=== PATIENT | male | born 1945 | race Caucasian/White ===

== ENCOUNTER 2019-12-21 | Emergency (ER) | payer MEDICARE, BC ==
[2019-12-21] MEDS ORDERED: LASIX 40 MG TAB40 MG PO (22:50)
[2019-12-21] MEDS ORDERED: ATORVASTATIN CA40 MG PO (22:50)
[2019-12-21] MEDS ORDERED: TOPROL XL25 M1 PO (22:50)
[2019-12-21] MEDS ORDERED: METFORMIN500 MG PO (22:51)
[2019-12-21] MEDS ORDERED: NOVOLIN 70/30 F1 INJ SC ×2 (22:53→22:57)
[2019-12-21] MEDS ORDERED: COZAAR25 MG PO (22:57)
[2019-12-21] MEDS ORDERED: ASPIRIN 81 LOW81 MG PO (22:58)
[2019-12-21] MEDS ORDERED: PEPCID AC10 MG PO (22:58)
[2019-12-21] MEDS ORDERED: VITAMIN D32000 UNIT PO (22:59)
[2019-12-21] MEDS ORDERED: CENTRUM PO (23:00)
== END 2019-12-21 23:23 | disposition home or self-care (01) ==
DX: I83.892 Varicose veins of left lower extremity with other complications (principal); S80.812A Abrasion, left lower leg, initial encounter; E11.9 Type 2 diabetes mellitus without complications; I10 Essential (primary) hypertension; I25.10 Atherosclerotic heart disease of native coronary artery without angina pectoris; Z95.1 Presence of aortocoronary bypass graft; Z95.0 Presence of cardiac pacemaker; Z79.4 Long term (current) use of insulin; X58.XXXA Exposure to other specified factors, initial encounter

== ENCOUNTER 2021-12-18 17:09 | Emergency (ER) | payer MEDICARE, BC ==
[~2021-12-18] VITALS: Ht 172.7 cm; Wt 117.6 kg
[~2021-12-18 17:09] MED LIST: ASPIRIN 81 LOW81 MG PO; ATORVASTATIN CA40 MG PO; CENTRUM PO; COZAAR25 MG PO; LASIX 40 MG TAB40 MG PO; METFORMIN500 MG PO; NOVOLIN 70/30 F1 INJ SC; PEPCID AC10 MG PO; TOPROL XL25 M1 PO; VITAMIN D32000 UNIT PO
[2021-12-18 17:46] VITALS: BP 143/87
[2021-12-18 18:00] VITALS: BP 142/85
[2021-12-18 19:32] VITALS: BP 142/85
== END 2021-12-18 19:32 | disposition home or self-care (01) ==
LOC: ED 17:09
PROC: 0HQEXZZ Repair Left Lower Arm Skin, External Approach (ICD-10-PCS; principal; 2021-12-18)
DX: S51.812A Laceration without foreign body of left forearm, initial encounter (principal); E11.9 Type 2 diabetes mellitus without complications; I10 Essential (primary) hypertension; I25.10 Atherosclerotic heart disease of native coronary artery without angina pectoris; W31.2XXA Contact with powered woodworking and forming machines, initial encounter; Z95.1 Presence of aortocoronary bypass graft; Z95.0 Presence of cardiac pacemaker; Z79.4 Long term (current) use of insulin; Z79.84 Long term (current) use of oral hypoglycemic drugs; Z79.01 Long term (current) use of anticoagulants

== ENCOUNTER 2022-12-20 22:55 | Observation (INO) | payer MEDICARE, BC ==
[~2022-12-20] VITALS: Ht 172.7 cm; Wt 102.0 kg
[2022-12-20 23:04] VITALS: BP 110/53
[2022-12-20 23:15] VITALS: BP 119/51
[2022-12-20 23:42] LABS: EOS% 0.4 % (0-8); HEMATOCRIT 34.8 % (39.0-50.0); HEMOGLOBIN 10.9 g/dl (14.0-18.0); IMMATURE GRANULOCYTES 0.2 % (0.0-5.0); LYMPH% 6.9 % (15-41); MEAN CELL VOLUME 85.1 fL CALC (80.0-100.0); MEAN CORPUSCULAR HGB 26.7 pG CALC (26.0-32.0); MEAN CORPUSCULAR HGB CONC 31.3 g/dL CAL (32.0-36.0); MONO% 7.6 % (2-13); NEUT# 8.06 thou/uL (1.82-7.42); NEUT% 84.9 % (42-76); RED BLOOD COUNT 4.09 mill/uL (4.70-6.10); RED CELL DISTRI WIDTH 14.5 % (11.5-15.5)
[2022-12-20 23:57] LABS: ALKALINE PHOSPHATASE 105 u/l (38-126); ANION GAP 15 (6-22 (CALC)); BILIRUBIN, TOTAL 1.5 mg/dL (0.2-1.3); BUN 25 mg/dL (8-23); BUN/CREATININE RATIO 19 (12-20 (CALC)); CARBON DIOXIDE 25 mmol/l (22-30); CHLORIDE 99 mmol/l (95-108); CREATININE 1.3 mg/dL (0.7-1.3); GFR FOR AFR.AMER. > 60 ML/MIN (>=60 (CALC)); GFR OTHER RACES 54 ML/MIN (>=60 (CALC)); MAGNESIUM 1.8 mg/dL (1.6-2.3); POTASSIUM 4.9 mmol/l (3.5-5.1); SGOT/AST 35 u/l (19-48); SODIUM 134 mmol/l (137-146); TOTAL PROTEIN 7.5 g/dL (6.3-8.2)
[2022-12-21] VITALS (50 sets, daily range): BP systolic 76–121; BP diastolic 37–70
[2022-12-21 00:11] LABS: C-REACTIVE PROTEIN 18.5 mg/dL (0-0.9)
[2022-12-21 01:00] LABS: URINE BILIRUBIN - DIPSTICK NEGATIVE (NEGATIVE); URINE BLOOD DIPSTICK SMALL (NEGATIVE); URINE COLOR YELLOW; URINE GLUCOSE - DIPSTICK NEGATIVE (NEGATIVE); URINE KETONE TRACE mg/dL (NEGATIVE); URINE LEUK ESTERASE NEGATIVE (NEGATIVE); URINE NITRITE - DIPSTICK NEGATIVE (Negative); URINE PH 5.5 (4.5-8.0); URINE PROTEIN - DIPSTICK 30 mg/dL (NEG-TRACE)
[2022-12-21] MEDS ORDERED: ENTRESTO 49-511 TAB PO (02:22)
[2022-12-22 03:23] VITALS: BP 105/53
[2022-12-22 05:38] LABS: BASO% 0.1 % (0-3); EOS% 1.5 % (0-8); HEMATOCRIT 31.2 % (39.0-50.0); HEMOGLOBIN 9.8 g/dl (14.0-18.0); IMMATURE GRANULOCYTES 0.9 % (0.0-5.0); MEAN CELL VOLUME 85.2 fL CALC (80.0-100.0); MEAN CORPUSCULAR HGB 26.8 pG CALC (26.0-32.0); MEAN CORPUSCULAR HGB CONC 31.4 g/dL CAL (32.0-36.0); MONO% 5.8 % (2-13); NEUT# 6.33 thou/uL (1.82-7.42); NEUT% 84.7 % (42-76); RED BLOOD COUNT 3.66 mill/uL (4.70-6.10); RED CELL DISTRI WIDTH 14.7 % (11.5-15.5)
[2022-12-22 05:52] LABS: ALKALINE PHOSPHATASE 90 u/l (38-126); ANION GAP 12 (6-22 (CALC)); BUN 32 mg/dL (8-23); BUN/CREATININE RATIO 26 (12-20 (CALC)); CARBON DIOXIDE 27 mmol/l (22-30); CHLORIDE 99 mmol/l (95-108); CREATININE 1.2 mg/dL (0.7-1.3); GFR FOR AFR.AMER. > 60 ML/MIN (>=60 (CALC)); GFR OTHER RACES 59 ML/MIN (>=60 (CALC)); SGOT/AST 35 u/l (19-48); SODIUM 132 mmol/l (137-146)
[2022-12-22 05:55] VITALS: BP 86/50
[2022-12-22 05:56] LABS: BILIRUBIN, TOTAL 0.7 mg/dL (0.2-1.3); TOTAL PROTEIN 5.6 g/dL (6.3-8.2)
[2022-12-22 05:57] VITALS: BP 105/59
[2022-12-22] MEDS ORDERED: AMOX/K CLAV875 M1 PO (09:52)
[2022-12-22] MEDS ORDERED: VIBRAMYCIN100 M2 PO (09:52)
[2022-12-22 09:55] VITALS: BP 116/66
[2022-12-22] MEDS ORDERED: HYDROCO/APAP1 TA9 PO (09:55)
== END 2022-12-22 11:30 | disposition home or self-care (01) ==
LOC: ED 22:55 → ED-I 12-21 01:00 → ED 12-21 01:23 → MS2 12-21 01:24 → ICU 12-21 01:24 → MS2 12-21 10:28
PROVIDERS: Family Medicine; Nurse Practitioner Family; ADMIT Internal Medicine; ATTEND Internal Medicine
DX: E11.69 Type 2 diabetes mellitus with other specified complication (principal); M86.671 Other chronic osteomyelitis, right ankle and foot; E11.621 Type 2 diabetes mellitus with foot ulcer; L97.419 Non-pressure chronic ulcer of right heel and midfoot with unspecified severity; L03.115 Cellulitis of right lower limb; E11.51 Type 2 diabetes mellitus with diabetic peripheral angiopathy without gangrene; I11.0 Hypertensive heart disease with heart failure; I50.9 Heart failure, unspecified; I25.10 Atherosclerotic heart disease of native coronary artery without angina pectoris; I48.91 Unspecified atrial fibrillation; Z85.028 Personal history of other malignant neoplasm of stomach; Z95.1 Presence of aortocoronary bypass graft; Z95.0 Presence of cardiac pacemaker; Z79.84 Long term (current) use of oral hypoglycemic drugs; Z79.4 Long term (current) use of insulin; Z89.411 Acquired absence of right great toe; Z95.820 Peripheral vascular angioplasty status with implants and grafts
CPT/HCPCS: J0692; J3370

== ENCOUNTER 2023-11-08 10:50 | Emergency (ER) | payer OTHER, MEDICARE ==
[~2023-11-08] VITALS: Ht 172.7 cm; Wt 105.0 kg
[~2023-11-08 10:50] MED LIST changes: +AMOX/K CLAV875 M1 PO; +ENTRESTO 49-511 TAB PO; +HYDROCO/APAP1 TA9 PO; +VIBRAMYCIN100 M2 PO
[2023-11-08 12:08] VITALS: BP 101/39
[2023-11-08 12:11] VITALS: BP 119/71
[2023-11-08 12:15] VITALS: BP 125/73
[2023-11-08 12:40] VITALS: BP 110/62
[2023-11-08 15:02] VITALS: BP 120/54
[2023-11-08 15:03] VITALS: BP 120/54
== END 2023-11-08 15:06 | disposition home or self-care (01) | DRG 563 ==
LOC: ED 10:50
DX: S63.642A Sprain of metacarpophalangeal joint of left thumb, initial encounter (principal); S63.502A Unspecified sprain of left wrist, initial encounter; I10 Essential (primary) hypertension; E11.9 Type 2 diabetes mellitus without complications; K21.9 Gastro-esophageal reflux disease without esophagitis; I48.91 Unspecified atrial fibrillation; I25.10 Atherosclerotic heart disease of native coronary artery without angina pectoris; Z95.1 Presence of aortocoronary bypass graft; Z95.0 Presence of cardiac pacemaker; Z79.84 Long term (current) use of oral hypoglycemic drugs; V89.2XXA Person injured in unspecified motor-vehicle accident, traffic, initial encounter